=== PATIENT | female | born 2000 | race Caucasian/White ===

== ENCOUNTER 2023-08-12 12:51 | Outpatient (REF) | payer OTHER, SELFPAY ==
--- NOTE | ~2023-08-12 | MR_ITS ---
EXAMINATION: MR KNEE WITHOUT CONTRAST, RIGHT CLINICAL INFORMATION: History of right knee surgery in August 2020, now complains of right knee pain COMPARISON: None available. TECHNIQUE: MRI of the knee without contrast was performed using routine sequences on a high-field scanner. FINDINGS: MENISCUS: The Right medial meniscus is intact. The lateral meniscus shows oblique horizontal linear T2 hyperintensity in the anterior horn cutting through the inferior articular surface. Posterior horn contains oblique thick band like T2 hyperintensity abutting the inferior articular surface without definite cutting through. CARTILAGE: Articular cartilage of the femoral condyles and tibial plateaus are intact. LIGAMENTS: The anterior and posterior cruciate ligaments are intact. Tibial and fibular collateral ligaments, iliotibial band, biceps femoris tendon attachment are intact. PATELLA: The Right patellar tendon and patellar articular cartilage are intact. There is mild right knee effusion. BONES: No focal bone lesions with abnormal signal can be seen. MR/MR knee RT wo con IMPRESSION: 1. Oblique horizontal linear T2 hyperintensity in the anterior horn of the lateral meniscus. 2. Oblique thick band like T2 hyperintensity abutting the inferior articular surface of the posterior horn of the lateral meniscus without definite cutting through. Findings could represent postsurgical fibrotic changes. 3. Mild right knee effusion.
== END 2023-08-12 12:52 | disposition home or self-care (01) ==
LOC: HO.MRI 12:51
PROVIDERS: PCP Family Medicine Sports Medicine; Visit Provider Family Medicine Sports Medicine
DX: S83.203A Other tear of unspecified meniscus, current injury, right knee, initial encounter (principal)
CPT/HCPCS: 73721

== ENCOUNTER 2023-11-15 07:41 | Outpatient (REF) | payer OTHER, SELFPAY ==
--- NOTE | ~2023-11-15 | US_ITS ---
EXAMINATION: US PELVIS CLINICAL INFORMATION: Breakthrough bleeding for one month LMP: 4 weeks ago COMPARISON: None available. TECHNIQUE: Ultrasound of the pelvis is performed using both transabdominal and transvaginal transducers along with Doppler. Transvaginal imaging is performed due to inadequate visualization transabdominally. FINDINGS: Uterus: The uterus is anteverted and measures 7.1 x 2.8 x 4.2 cm. No focal fibroid. The endometrial thickness is 0.6 cm Adnexa: Both ovaries are visualized. There is normal color flow to the adnexa. There is no ovarian torsion. There is a small amount of free fluid within the cul-de-sac. Right ovary measures 3.9 x 2.7 x 2.5 cm. Volume 14.0 mL. Multiple subcentimeter peripheral follicles. 0.9 x 1.2 x 1.2 cm follicle precludes the diagnosis of polycystic ovary syndrome. Left ovary measures 3.5 x 2.3 x 2.4 cm. Volume 10.4 mL. Multiple subcentimeter peripheral follicles. US/US pelvic and transvaginal IMPRESSION: 1. Normal uterus. 2. Enlarged ovaries with multiple subcentimeter peripheral follicles. 1.2 cm follicle in the right ovary precludes diagnosis of polycystic ovary syndrome. No follow-up is recommended.
== END 2023-11-15 07:42 | disposition home or self-care (01) ==
LOC: HO.UMASIMG 07:41
PROVIDERS: Visit Provider Nurse Practitioner Women's Health
DX: N92.6 Irregular menstruation, unspecified (principal); N76.0 Acute vaginitis
CPT/HCPCS: 76830; 76856